=== PATIENT | female | born 1955 | race Caucasian/White ===

== ENCOUNTER → 2017-03-08 | Outpatient (CLI) | payer OTHER ==
[~2017-03-08] MED LIST: ACET-1256 PO; ALLO100T PO; ASPI81TA25 PO; ASPI81TA28 PO; ATOR-22 PO; CARV3.122 PO; CEFU1TAB36 PO; CHOL100010 PO; COLC0.6T54 PO; FENO145T26 PO; FERR325T18 PO; FRS/40 PO; KRIL1000 PO; LCTX PO; LEVO112T4 PO; LISI-729 PO; LOSA1TAB38 PO; MAGN400T24 PO; MAGN400T6 PO; METF500T PO; MULT-506 PO; OMEG10007 PO; OXGN; PRLSR20 PO; SIMV40TA2 PO; SYN112 PO; VNTHFA/IN INH
--- NOTE | 2017-03-09 15:07 | MAMMOGRAPHY REPORT ---
BILATERAL DIGITAL SCREENING MAMMOGRAM WITH CAD: 03/08/2017 TECHNIQUE: Current study was also evaluated with a Computer Aided Detection (CAD) system. Bilatera l CC and MLO views were obtained. COMPARISON: Comparison is made to exams dated: 03/07/2016 mammogram, 01/10/2011 mammogram, 01/04/2010 m ammogram - [facility], 01/18/2009, 01/18/2009, and 12/29/2008. BREAST COMPOSITION: The tissue of both breasts is almost entirely fatty. FINDINGS: No suspicious masses, calcifications, or areas of architectural distortion are noted in e ither breast. There has been no significant interval change compared to prior exams. Scattered bila teral benign-appearing calcifications are again noted. A biopsy marker clip is again noted in the l eft upper outer quadrant. IMPRESSION: ACR BI-RADS CATEGORY 2: BENIGN There is no mammographic evidence of malignancy. A 1 year screening mammogram is recommended. The p atient will receive written notification of the results. Approximately 10% of breast cancers are not detected with mammography. A negative mammographic repor t should not delay biopsy if a clinically suggestive mass is present. Teresita Tapia M.D. ah/:03/08/2017 15:52:38 Cupola Repairer: Keeley TENORIO(Jae)(M), [facility] letter sent: Normal 1/2 BI-RADS Code: ACR BI-RADS Category 2: Benign
== END | disposition home or self-care (01) ==
LOC: C.MAMM 14:51
PROVIDERS: ATTEND Family Medicine
DX: Z12.31 Encounter for screening mammogram for malignant neoplasm of breast (principal)

== ENCOUNTER → 2017-06-27 | Day surgery (SDC) | payer OTHER ==
[2017-06-19 13:26] VITALS: Ht 160 cm; Wt 127.3 kg
[~2017-06-27] VITALS: Ht 160 cm; Wt 127.3 kg
[~2017-06-27] MED LIST changes: -ASPI81TA25 PO; -CEFU1TAB36 PO; +EpHEDrine SULFATE 50MG/5ML SYR ONE; -FERR325T18 PO; -LCTX PO; +LIDOCAINE HCL 2% 2 ML VIAL (20MG/ML) ONE; -LISI-729 PO; -MAGN400T24 PO; -OMEG10007 PO; +PROPOFOL IV EMULSION 10 MG/ML 20 ML VIAL IV ONE; -SIMV40TA2 PO; +SODIUM CHLORIDE 0.9% 500ML 500 ML IV ONE; -SYN112 PO
[2017-06-27 14:13] VITALS: TEMP 37
--- NOTE | 2017-06-27 14:32 | Endo History and Physical ---
History & Physical Date of Service: Jun 27, 2017. Chief Complaint: screening Referring Physician: Dr. Vivienne Berman History of Present Illness screening colonscopy; last 10 years ago; no FH CRC; asymptomatic Past Surgical History Hx Cardiac Surgery: No Hx Internal Defibrillator: No Hx Pacemaker: No Hx Abdominal Surgery: No Hx of Implantable Prosthesis: No Hx Post-Op Nausea and Vomiting: No Hx Cancer Surgery: No Hx Thoracic Surgery: No Hx Orthopedic: Yes (LT/RT TKA, LT/RT CTR) Hx Urinary Tract Surgery: No Family History None Social History Smoking Status: Never Smoker Hx Substance Use: No Hx Alcohol Use: No Allergies Coded Allergies: No Known Allergies (Verified , 06/19/17) Current Medications Reported Home Medications Medications Dose Route/Sig Max Daily Dose Days Date Category Dose Instructions Colchicine 0.6 Mg Tab 0.6 Mg PO DAILY PRN 06/19/17 Reported Prilosec (Omeprazole) 20 Mg Capcr 20 Mg PO QAM 06/19/17 Reported Krill Oil 1 Cap Cap 1 Cap PO QAM 06/19/17 Reported Oxygen Gas 2 Liters NA CONTINOUS 06/19/17 Reported 4L NC WITH AMBULATION 4L NC WITH BIPAP HS Glucophage (Metformin Hcl) 500 Mg Tab 500 Mg PO BID 06/19/17 Reported Mag-Ox (Magnesium Oxide) 400 Mg Tab 400 Mg PO TID 06/19/17 Reported Cozaar (Losartan Potassium) 100 Mg Tab 100 Mg PO QAM 06/19/17 Reported Levothyroxine Sodium 112 Mcg Tab 1 Tab PO QAM 06/19/17 Reported Lasix (Furosemide) 40 Mg Tab 5 Tab PO QPM 06/19/17 Reported Tricor (Fenofibrate) 145 Mg Tab 145 Mg PO QAM 06/19/17 Reported Coreg (Carvedilol) 3.125 Mg Tab 3.125 Mg PO BID 06/19/17 Reported Lipitor (Atorvastatin Calcium) 20 Mg Tab 20 Mg PO QPM 06/19/17 Reported Zyloprim (Allopurinol) 100 Mg Tab 100 Mg PO QAM 06/19/17 Reported Ventolin Hfa (Albuterol) 200 Puffs/59262 Mcg Aers 2-4 Puffs INH Q6H PRN 06/19/17 Reported Vitamin D (Cholecalciferol) 1,000 Inter.unit Tab 1,000 Inter.unit PO QAM 08/18/13 Reported Tylenol (Acetaminophen) 500 Mg Tab 2 Tabs PO TID 08/18/13 Reported Aspirin Ec (Aspirin) 81 Mg Tab 81 Mg PO QAM 08/18/13 Reported Multivitamin (Multivitamins) Tab 1 Tab PO QAM 06/12/08 Reported Vital Signs Weight (Kilograms): 127.27 Height (Feet): 5 Height (Inches): 3 Date Time Temp Pulse Resp B/P (MAP) Pulse Ox O2 Delivery O2 Flow Rate FiO2 06/27/17 14:13 37 99 18 149/75 (99) 92 Room Air Physical Exam AAox3 Nls1s2 Lungs CTA Abd soft NT/ND + BS - CCE Assessment and Plan screening colon
--- NOTE | 2017-06-27 15:01 | Discharge Instructions ---
Endoscopy Patient Instructions Date / Procedure(s) Performed Jun 27, 2017. Colonoscopy Allergy Information Coded Allergies: No Known Allergies (Verified , 06/19/17) Discharge Date / Findings Jun 27, 2017. rectal polyps; diverticulosis; hemorrhoids Medication Instructions Stopped Medication(s): stopped Metformin yesterday,took ASA yesterday Restart Stopped Medication(s): Reported Home Medications Medications Dose Route/Sig Max Daily Dose Days Date Category Dose Instructions Colchicine 0.6 Mg Tab 0.6 Mg PO DAILY PRN 06/19/17 Reported Prilosec (Omeprazole) 20 Mg Capcr 20 Mg PO QAM 06/19/17 Reported Krill Oil 1 Cap Cap 1 Cap PO QAM 06/19/17 Reported Oxygen Gas 2 Liters NA CONTINOUS 06/19/17 Reported 4L NC WITH AMBULATION 4L NC WITH BIPAP HS Glucophage (Metformin Hcl) 500 Mg Tab 500 Mg PO BID 06/19/17 Reported Mag-Ox (Magnesium Oxide) 400 Mg Tab 400 Mg PO TID 06/19/17 Reported Cozaar (Losartan Potassium) 100 Mg Tab 100 Mg PO QAM 06/19/17 Reported Levothyroxine Sodium 112 Mcg Tab 1 Tab PO QAM 06/19/17 Reported Lasix (Furosemide) 40 Mg Tab 5 Tab PO QPM 06/19/17 Reported Tricor (Fenofibrate) 145 Mg Tab 145 Mg PO QAM 06/19/17 Reported Coreg (Carvedilol) 3.125 Mg Tab 3.125 Mg PO BID 06/19/17 Reported Lipitor (Atorvastatin Calcium) 20 Mg Tab 20 Mg PO QPM 06/19/17 Reported Zyloprim (Allopurinol) 100 Mg Tab 100 Mg PO QAM 06/19/17 Reported Ventolin Hfa (Albuterol) 200 Puffs/38540 Mcg Aers 2-4 Puffs INH Q6H PRN 06/19/17 Reported Vitamin D (Cholecalciferol) 1,000 Inter.unit Tab 1,000 Inter.unit PO QAM 08/18/13 Reported Tylenol (Acetaminophen) 500 Mg Tab 2 Tabs PO TID 08/18/13 Reported Aspirin Ec (Aspirin) 81 Mg Tab 81 Mg PO QAM 08/18/13 Reported Multivitamin (Multivitamins) Tab 1 Tab PO QAM 06/12/08 Reported Reported Home Medications Medications Dose Route/Sig Max Daily Dose Days Date Category Dose Instructions Colchicine 0.6 Mg Tab 0.6 Mg PO DAILY PRN 06/19/17 Reported Prilosec (Omeprazole) 20 Mg Capcr 20 Mg PO QAM 06/19/17 Reported Krill Oil 1 Cap Cap 1 Cap PO QAM 06/19/17 Reported Oxygen Gas 2 Liters NA CONTINOUS 06/19/17 Reported 4L NC WITH AMBULATION 4L NC WITH BIPAP HS Glucophage (Metformin Hcl) 500 Mg Tab 500 Mg PO BID 06/19/17 Reported Mag-Ox (Magnesium Oxide) 400 Mg Tab 400 Mg PO TID 06/19/17 Reported Cozaar (Losartan Potassium) 100 Mg Tab 100 Mg PO QAM 06/19/17 Reported Levothyroxine Sodium 112 Mcg Tab 1 Tab PO QAM 06/19/17 Reported Lasix (Furosemide) 40 Mg Tab 5 Tab PO QPM 06/19/17 Reported Tricor (Fenofibrate) 145 Mg Tab 145 Mg PO QAM 06/19/17 Reported Coreg (Carvedilol) 3.125 Mg Tab 3.125 Mg PO BID 06/19/17 Reported Lipitor (Atorvastatin Calcium) 20 Mg Tab 20 Mg PO QPM 06/19/17 Reported Zyloprim (Allopurinol) 100 Mg Tab 100 Mg PO QAM 06/19/17 Reported Ventolin Hfa (Albuterol) 200 Puffs/73273 Mcg Aers 2-4 Puffs INH Q6H PRN 06/19/17 Reported Vitamin D (Cholecalciferol) 1,000 Inter.unit Tab 1,000 Inter.unit PO QAM 08/18/13 Reported Tylenol (Acetaminophen) 500 Mg Tab 2 Tabs PO TID 08/18/13 Reported Aspirin Ec (Aspirin) 81 Mg Tab 81 Mg PO QAM 08/18/13 Reported Multivitamin (Multivitamins) Tab 1 Tab PO QAM 06/12/08 Reported Provider Instructions Activity Restrictions - No exercising or heavy lifting for 24 hours. - Do not drink alcohol the day of the procedure. - Do not drive a car or operate machinery until the day after the procedure. - Do not make any important decisions or sign important papers in 24 hours after the procedure. Following Day: - Return to full activity which may include returning to work/school. Diet Start your diet with liquids and light foods (jello, soup, juice, toast). Then eat your usual diet if not nauseated. Treatment For Common After Affects For mild abdominal pain, bloating, or excessive gas: - Rest - Eat lightly - Lie on right side Follow-Up Information Follow-up with Dr. Vivienne Berman as scheduled Anesthesia Information What You Should Know You have had a procedure that required some medicine to reduce anxiety and discomfort. This treatment is called moderate sedation. After receiving the treatment, you may be sleepy, but you will be able to breathe on your own. The effects of the treatment may last for several hours. Follow these instructions along with Activity/Diet recommendations noted above: * Do NOT do anything where dizziness or clumsiness would be dangerous. * Rest quietly at home today, then you can be up and about tomorrow. * Have a responsible person stay with you the rest of today. * You may have had an I.V. today. If so, you may take the dressing off later today. Recommendations Call your doctor if: * Trouble breathing * Continuous vomiting for more than 24 hours * Temperature above 101 degrees * Severe abdominal pain or bloating * Pain not relieved by pain medicine ordered * There is increased drainage or redness from any incision * A large amount of rectal bleeding greater than 2-3 tablespoons. (If you had a polyp/s removed or have hemorrhoids, a small amount of blood - from the rectum is to be expected.) * You have any unanswered questions or concerns. IN THE EVENT OF A SERIOUS EMERGENCY, GO TO THE NEAREST EMERGENCY ROOM Your discharge instructions were prepared by provider Rishabh Acosta. Patient Instructions Signature Page Maddi Lim Patient (or Guardian) Signature/Date: I have read and understand the instructions given to me by my caregivers. Caregiver/RN/Doctor Signature/Date: The above-named patient and/or guardian has received patient instructions on this date. + Original Patient Signature Page (only) stays with chart. Please make copy for patient.
--- NOTE | 2017-06-27 15:09 | GI REPORT ---
Procedure Date: 06/27/2017 2:37 PM Procedure: Colonoscopy Indications: Screening for colorectal malignant neoplasm Medicines: Propofol per Anesthesia Complications: No immediate complications. Estimated blood loss: Minimal. Estimated Blood Loss: Estimated blood loss was minimal. Procedure: Pre-Anesthesia Assessment: - Prior to the procedure, a History and Physical was performed, and patient medications and allergies were reviewed. The patient's tolerance of previous anesthesia was also reviewed. The risks and benefits of the procedure and the sedation options and risks were discussed with the patient. All questions were answered, and informed consent was obtained. Prior Anticoagulants: The patient has taken no previous anticoagulant or antiplatelet agents. ASA Grade Assessment: III - A patient with severe systemic disease. After reviewing the risks and benefits, the patient was deemed in satisfactory condition to undergo the procedure. After I obtained informed consent, the scope was passed under direct vision. Throughout the procedure, the patient's blood pressure, pulse, and oxygen saturations were monitored continuously. The scope was introduced through the anus and advanced to the terminal ileum, with identification of the appendiceal orifice and IC valve. The colonoscopy was performed without difficulty. The patient tolerated the procedure well. The quality of the bowel preparation was good. Findings: The perianal and digital rectal examinations were normal. Pertinent negatives include normal sphincter tone, no palpable rectal lesions and no anal lesion or abnormality was detected. Two sessile polyps were found in the rectum. The polyps were 2 to 4 mm in size. These polyps were removed with a cold biopsy forceps. Resection and retrieval were complete. Estimated blood loss was minimal. Verification of patient identification for the specimen was done by the physician and public health technician using the patient's name and medical record number. Many small-mouthed diverticula were found in the entire colon. Non-bleeding internal hemorrhoids were found during retroflexion. The hemorrhoids were mild. The terminal ileum appeared normal. The exam was otherwise without abnormality. No additional abnormalities were found on retroflexion. Impression: - Two 2 to 4 mm polyps in the rectum, removed with a cold biopsy forceps. Resected and retrieved. - Diverticulosis in the entire examined colon. - Non-bleeding internal hemorrhoids. - The examined portion of the ileum was normal. - The examination was otherwise normal. Recommendation: - Discharge patient to home (ambulatory). - Resume previous diet. - Continue present medications. - Await pathology results. - Repeat colonoscopy for surveillance based on pathology results. - Return to referring physician as previously scheduled. MD Rishabh Holbrook MD 06/27/2017 3:09:21 PM This report has been signed electronically. Note Initiated On: 06/27/2017 2:37 PM I attest to the content of the Intraoperative Record and orders documented therein, exceptions below
[2017-06-27 15:34] VITALS: BP 114/71; PULSE 65; O2SAT 93
--- NOTE | 2017-06-27 16:09 | Anesthesiology Progress Note ---
Anesthesia Post Op Note Date & Time Jun 27, 2017 at 16:09 Vital Signs Pain Intensity: 0 Vital Signs Past 12 Hours Date Time Temp Pulse Resp B/P (MAP) Pulse Ox O2 Delivery O2 Flow Rate FiO2 06/27/17 15:34 65 18 114/71 (85) 93 Room Air 06/27/17 15:19 70 18 141/96 (111) 95 Room Air 06/27/17 15:05 79 16 106/68 (81) 93 Room Air 06/27/17 14:13 37 99 18 149/75 (99) 92 Room Air Notes Mental Status: alert / awake / arousable, participated in evaluation Pt Amnestic to Procedure: Yes Nausea / Vomiting: adequately controlled Pain: adequately controlled Airway Patency, RR, SpO2: stable & adequate BP & HR: stable & adequate Hydration State: stable & adequate Anesthetic Complications: no major complications apparent
== END | disposition home or self-care (01) ==
LOC: C.GI 12:37
PROVIDERS: ATTEND Internal Medicine Gastroenterology
DX: Z12.11 Encounter for screening for malignant neoplasm of colon (principal); D12.8 Benign neoplasm of rectum; K57.30 Diverticulosis of large intestine without perforation or abscess without bleeding; K64.8 Other hemorrhoids; Z79.84 Long term (current) use of oral hypoglycemic drugs; Z79.899 Other long term (current) drug therapy; Z79.82 Long term (current) use of aspirin

== ENCOUNTER → 2018-03-05 | Outpatient (CLI) | payer OTHER ==
[~2018-03-05] MED LIST changes: -EpHEDrine SULFATE 50MG/5ML SYR ONE; -LIDOCAINE HCL 2% 2 ML VIAL (20MG/ML) ONE; -PROPOFOL IV EMULSION 10 MG/ML 20 ML VIAL IV ONE; -SODIUM CHLORIDE 0.9% 500ML 500 ML IV ONE
--- NOTE | 2018-03-05 13:13 | DIAGNOSTIC IMAGING REPORT ---
CHEST 2 VIEWS ROUTINE CLINICAL HISTORY: I27.20 Pulmonary [id number] dyspnea COMPARISON STUDY: 12/28/2015 FINDINGS: Mild stable cardia megaly. Bibasilar platelike atelectasis. Upper lungs are clear. Diaphragms are smooth. Mild stable cardiomegaly. IMPRESSION: Mild stable cardiomegaly. Platelike atelectasis both lung bases. The above report was generated using voice recognition software. It may contain grammatical, syntax or spelling errors. Electronically signed by: Ibrahima Garcia M.D. 03/05/2018 1:12 PM Dictated Date/Time: 03/05/2018 1:10 PM
== END | disposition home or self-care (01) ==
LOC: C.RAD1850 12:40
PROVIDERS: ATTEND Physician Assistant
DX: I27.20 Pulmonary hypertension, unspecified (principal); R91.8 Other nonspecific abnormal finding of lung field